=== PATIENT | female | born 1950 | race Caucasian/White ===

== ENCOUNTER 2017-10-05 07:53 | Day surgery (SDC) | payer MEDICARE, MEDICAID ==
[~2017-10-05] VITALS: Ht 152.4 cm; Wt 90.7 kg
[~2017-10-05 07:53] MED LIST: ABILIFY10 M1 PO; ABILIFY2 MG PO; AMBIEN5 MG PO; AMOX/K CLAV875 M1 PO; ARIPIPRAZOLE5 MG PO; ATIVAN0.5 MG PO; BUPROPION HCL300 MG PO; DETROL1 M1 PO; DICLOFENAC50 MG PO; EFFEXOR XR75 MG PO; FLAX SEED OIL1300 MG PO; FLAXSEED OIL1000 MG PO; HALOPERIDOL0.5 MG PO; LEVOTHYROXIN50 MCG PO; METFORMIN HCL500 M1 PO; PERCOCET 10/31 COMBO PO; THYROXIN; ZESTRIL10 MG PO; ZESTRIL5 M1 PO
[2017-10-05 10:30] VITALS: BP 118/70
== END 2017-10-05 10:16 | disposition home or self-care (01) ==
LOC: ENDO 07:53 → ORM 10:00 → ENDO 10:00
PROVIDERS: ATTEND Surgery
PROC: 0DJD8ZZ Inspection of Lower Intestinal Tract, Via Natural or Artificial Opening Endoscopic (ICD-10-PCS; principal; 2017-10-05)
DX: R19.4 Change in bowel habit (principal); K57.30 Diverticulosis of large intestine without perforation or abscess without bleeding; K64.1 Second degree hemorrhoids; F41.9 Anxiety disorder, unspecified; R73.03 Prediabetes

== ENCOUNTER 2019-03-25 14:02 | Emergency (ER) | payer MEDICARE, MEDICAID ==
[~2019-03-25] VITALS: Ht 152.4 cm; Wt 65.0 kg
[2019-03-25 14:43] VITALS: BP 118/63
== END 2019-03-25 14:46 | disposition home or self-care (01) ==
LOC: ED 14:02
DX: K13.70 Unspecified lesions of oral mucosa (principal); E11.9 Type 2 diabetes mellitus without complications